=== PATIENT | female | born 1990 | race Two or more races ===

== ENCOUNTER 2017-01-11 14:39 | Emergency (ER) | payer MEDICAID ==
[~2017-01-11] VITALS: Ht 154.9 cm; Wt 59.9 kg
[2017-01-11 15:09] VITALS: BP 105/60
[2017-01-11] MEDS ORDERED: cefTRIAXone SOD 1,000 MG VL IM ONE (16:30)
== END 2017-01-11 16:58 | disposition home or self-care (01) ==
LOC: ER 14:46
DX: J03.90 Acute tonsillitis, unspecified (principal)
CPT/HCPCS: 96372; 99283; J0696